=== PATIENT | male | born 1970 | race Caucasian/White ===

== ENCOUNTER 2017-02-21 12:57 | Inpatient (IN) | payer MEDICAID ==
[2017-02-21] VITALS (14 sets, daily range): BP systolic 95–145; BP diastolic 67–90
[~2017-02-21] VITALS: Ht 177.8 cm; Wt 91.5 kg
--- NOTE | ~2017-02-21 | OP ---
PATIENT NAME: NAMITA JARAMILLO MEDICAL RECORD: [id number] :72 LOCATION:D.[facility] D.CV02 ADMISSION DATE:02/21/17 SURGEON: TIBURCIO VAZQUEZ MD DATE OF OPERATION: 02/23/2017 PROCEDURES: 1. PTCA stent LAD. 2. Left heart catheterization. 3. Selective coronary angiography. 4. Left ventriculogram. 5. Intravascular ultrasound. INDICATION: Angina and coronary artery disease. PROCEDURE IN DETAIL: After informed consent was obtained and after a detailed explanation of risks, benefits as well as alternative therapies, the patient elected to proceed with angiogram and angioplasty. The right radial area was prepped and draped in normal sterile fashion. The right radial artery was cannulated via modified Seldinger technique with placement of 6-Korean sheath. All catheters were exchanged through this sheath. FINDINGS: The left ventriculogram was performed in standard 30-degree RAMIREZ view, reveals good cardiac wall motion throughout all segments. Overall ejection fraction estimated at 60%. SELECTIVE CORONARY ANGIOGRAPHY: 1. Left main showed no significant angiographic disease. 2. Left anterior descending has a previously placed stent that is widely patent, after this, however, there is 75% stenosis. 3. The left circumflex has moderate irregularities, but no flow-limiting stenosis. 4. Right coronary has a lesion in the mid vessel, but this is no greater than 60% confirmed by intravascular ultrasound. PTCA STENT OF THE LAD: The stent used is a 3.5 x 15-mm Integrity. Result was 0% residual stenosis. OVERALL IMPRESSION: Successful percutaneous transluminal coronary angioplasty stent of the left anterior descending going from 75% initial stenosis to 0% residual stenosis. TRANSINT:[id number] Voice Confirmation ID: [id number] DOCUMENT ID: [id number] TIBURCIO VAZQUEZ MD CC: [id number] DICTATION DATE: 02/23/17 1004 LAP MAKER: 02/23/17 1034 ADM IN [place] [address] [place] [address]
--- NOTE | ~2017-02-21 | HEMODYNAMI ---
PATIENT:NAMITA JARAMILLO MEDICAL RECORD: [id number] : 72 [facility]CV[facility] ADMISSION DATE: 02/21/17 Generatedon:02/23/201710:04 Patient name: NAMITA JARAMILLO Patient #: [id number] SSN: : Date of study: 02/23/2017 Page: Of Hemodynamic Procedure Report Patient Data Patient Demographics Procedure consent was obtained First Name: NAMITA Gender: Male Last Name: ELLA : 1970 Patient #: [id number] Age: 46 year(s) Race: Unknown Additional ID: [id number] Contact details [address]: [address] [place] [address] State: [place] City: [place] Zip code: [address] Admission Admission Data Admission Date: 02/21/2017 Admission Time: 15:26 Room #: D.CV02 Lab Results Lab Result Date: 02/22/2017 Lab Result Time: 0:00 Biochemistry Name Units Result Min Max Creatinine mg/dl 1 --(--*-)-- 0.6 1.3 CBC Name Units Result Min Max Hemoglobin g/dl 12.2 *-(----)-- 13.5 17.5 Procedure Procedure Types Cath Procedure Diagnostic Procedure [facility] w/Coronaries FFR/IVUS Intra-Coronary IVUS Initial PCI Procedure Coronary Stent Initial Miscellaneous Procedures Moderate Sedation up to 30 minutes Procedure Description Procedure Date Procedure Date: 02/23/2017 Procedure Start Time: 9:43 Procedure End Time: 10:04 Procedure Staff Name Function Chas Perry MD Performing Physician Kimmie Davis RT Scrub Fantasma Linn RN Nurse Isela Bruce RT Monitor Procedure Data Cath Procedure Fluoroscopy Diagnostic fluoroscopy Total fluoroscopy Time: 4 time: 4 min min Diagnostic fluoroscopy Total fluoroscopy dose: 665 dose: 665 mGy mGy Contrast Material Contrast Material Type Amount (ml) Isovue 300 101 Entry Location Entry Primary Successful Side Size Upsize Upsize Entry Closure Rey ccessful Closure Location (Fr) 1 (Fr) 2 (Fr) Remarks Device Remarks Radial Right 6 Fr Mechanical artery Short Compression Estimated blood loss: 10 ml Diagnostic catheters Device Type Used For End Catheter Placement Diagnostic Terumo 5Fr LV Angiography Morganza 110cm catheter Diagnostic Terumo 5Fr Left Coronary Morganza 110cm catheter Angiography Diagnostic Terumo 5Fr Right Coronary Morganza 110cm catheter Angiography Procedure Complications No complications Procedure Medications Medication Administration Route Dosage Oxygen NC 2 l/min Lidocaine 2% added to field 20 Heparin Flush Bag added to field 2 bags (1000units/500ml NS) 0.9% NaCl I.V. 100 ml/hr Versed I.V. 1 mg Fentanyl I.V. 50 mcg Heparin Bolus I.V. 4000 units Radial Cocktail I.A. 1 syringe (Verapomil 2mg/Nitro 400mcg/Heparin 1500units) Versed I.V. 1 mg Fentanyl I.V. 50 mcg Hemodynamics Rest HGB: 12.2 (g/dl) Heart Rate: 84 (bpm) Snapshots Pre Cath Intra NCS Post Cath Vital Signs Time Heart Resp SPO2 etCO2 HG4asfa NIBP (mmHg) Rhythm Pain Sedatio n Rate (ipm) (%) (mmHg) (mmHg) Status Level (bpm) 9:27:04 81 19 97 0 0 141/105(129) NSR 7 (11) 10(A) , Very intense 9:31:18 80 18 100 0 0 145/103(120) NSR 7 (11) 10(A) , Very intense 9:35:34 80 25 100 0 0 145/104(123) NSR 7 (11) 10(A) , Very intense 9:39:50 80 19 96 0 0 143/92(117) NSR 7 (11) 10(A) , Very intense 9:44:04 80 17 96 0 0 133/99(122) NSR 7 (11) 10(A) , Very intense 9:48:20 80 15 97 0 0 122/86(109) NSR 0 (11) 9(A) , No pain 9:52:24 79 16 95 0 0 118/86(108) NSR 0 (11) 9(A) , No pain 9:56:30 80 17 95 0 0 115/86(105) NSR 0 (11) 9(A) , No pain 10:00:36 80 17 96 0 0 129/82(104) NSR 0 (11) 10(A) , No pain Medications Time Medication Route Dose Verified Delivered Reason Notes Effectiveness by by 9:34:20 Oxygen NC 2 l/min Chas Meek used for Orlando Linn RN procedure 9:34:32 Lidocaine 2% added 20ml Chas Doherty for local to vial Orlando Perry MD anesthetic field 9:34:38 Heparin Flush added 2 bags Chas Doherty used for Bag to Orlando Perry MD procedure (1000units/500ml field NS) 9:34:47 0.9% NaCl I.V. 100 Chas Meek Per physician ml/hr Orlando Linn RN 9:42:04 Versed I.V. 1 mg Chas Meek for sedation Orlando Linn RN 9:42:11 Fentanyl I.V. 50 mcg Chas Meek for sedation Orlando Linn RN 9:46:00 Radial Cocktail I.A. 1 Chas Doherty for (Verapomil syringe Orlando Perry MD vasodilation 2mg/Nitro 400mcg/Heparin 1500units) 9:50:53 Heparin Bolus I.V. 4000 Chas Meek for verif ied units Orlando Linn RN anticoagulation with dr perry 9:52:39 Versed I.V. 1 mg Chas Meek for sedation Orlando Linn RN 9:52:42 Fentanyl I.V. 50 mcg Chas Meek for sedation Orlando Linn RN Procedure Log Time Note 9:01:22 Informed consent obtained and on chart 9:01:31 Diagnostic Cath Status : Elective 9:01:59 Fantasma Linn RN sent for patient. Start room use. 9:02:00 Time tracking: Regular hours 9:02:05 Plan of Care:Hemodynamics will remain stable., Cardiac rhythm will remain stable., Comfort level will be maintained., Respiratory function will remain adequate., Patient/ family verbilizes understanding of procedure., Procedure tolerated without complication., Recovers from procedure without complications.. 9:20:33 Patient received from CVICU to CCL 1 Alert and oriented. Tansferred to table in Supine position. 9:20:35 Warm blankets applied, and bonita hugger turned on for patient comfort. 9:20:35 Correct patient and procedure confirmed by team. 9:20:36 ECG and BP/O2 sat monitors applied to patient. 9:20:50 Vital chart was started 9:20:52 Baseline sample Acquired. 9:20:56 Rhythm: sinus rhythm 9:20:58 Full Disclosure recording started 9:21:03 H&P Date Dictated: 02/23/2017 New H&P dictated by physician.. 9:21:05 Pre-procedure instructions explained to patient. 9:21:05 Pre-op teaching completed and patient verbalized understanding. 9:21:07 Family in waiting room. 9:21:09 Patient NPO since Midnight. 9:21:15 Is the patient allergic to Iodine/contrast media? No. 9:21:16 Was the patient premedicated? No 9:21:19 Is patient on blood thinner?Yes 9:21:23 ACC The patient was administered the following blood thiners within the last 24 hours: ACCPlavix 9:31:38 Patient diabetic? No. 9:32:47 Previous problem with sedation/anesthesia? No ? 9:32:48 Snore? Yes 9:32:50 Sleep apnea? No 9:32:51 Deviated septum? No 9:32:51 Opens mouth fully? Yes 9:32:52 Sticks out tongue? Yes 9:32:54 Airway obstruction? No ? 9:32:56 Dentures? No ? 9:34:20 Oxygen 2 l/min NC was administered by Fantasma Linn RN; used for procedure; 9:34:32 Lidocaine 2% 20ml vial added to field was administered by Chas Perry MD; for local anesthetic; 9:34:38 Heparin Flush Bag (1000units/500ml NS) 2 bags added to field was administered by Chas Perry MD; used for procedure; 9:34:47 0.9% NaCl 100 ml/hr I.V. was administered by Fantasma Linn RN; Per physician; 9:35:06 Pre procedure: right dorsailis pedis pulse 2+ Normal; easily identifiable; not easily obliterated 9:35:09 Modified Devang's test Ulnar < 7 seconds 9:35:11 Patient pain scale 7/10 Chest. 9:35:37 IV left hand D/C'd due to infiltration. 9:36:05 IV started by Fantasma Linn RN inright forearm with a 18 gauge IV catheter with 0.9% NaCl at KVO. 9:36:15 18G IV catheter opened to sterile field. 9:36:22 Lab results completed and on chart. 9:36:25 Right Radial & Right Groin area was prepped with chlora-prep and draped in sterile fashion 9:36:25 Alarms reviewed by R. N. 9:36:26 Sharps counted by scrub and verified by R.N. 9:36:30 Use device set Radial Dx 9:36:31 Acist Syringe opened to sterile field. 9:36:31 Medline Cath Pack opened to sterile field. 9:36:32 Bag Decanter opened to sterile field. 9:36:32 Terumo 6Fr Slender Glidesheath opened to sterile field. 9:36:32 St Brian 260cm J .035 wire opened to sterile field. 9:36:33 Acist Hand Control opened to sterile field. 9:36:33 Acist Manifold opened to sterile field. 9:36:33 Tegaderm 4 x 4 opened to sterile field. 9:36:34 MBrace Wrist Support opened to sterile field. 9:38:19 Lab Result : Hemoglobin 12.2 g/dl 9:38:19 Lab Result : Creatinine 1 mg/dl 9:41:50 Final Timeout: patient, procedure, and site verified with staff and physician. All members of the team are in agreement. 9:41:54 Right Radial site verified by team. 9:41:57 Physical assessment completed. ASA score P 2 - A patient with mild systemic disease as per Chas Perry MD. 9:41:59 Sedation plan: IV Moderate Sedation Versed, Fentanyl 9:42:04 Versed 1 mg I.V. was administered by Fantasma Linn RN; for sedation; 9:42:11 Fentanyl 50 mcg I.V. was administered by Fantasma Linn RN; for sedation; 9:43:25 Zero performed for pressure channel P1 9:43:29 Procedure started. 9:43:33 Local anesthetic to right radial artery with Lidocaine 2% by Chas Perry MD.INITIAL ACCESS ONLY 9:45:29 A 6 Fr Short sheath was inserted into the Right Radial artery 9:45:38 Zero performed for pressure channel P1 9:46:00 Radial Cocktail (Verapomil 2mg/Nitro 400mcg/Heparin 1500units) 1 syringe I.A. was administered by Chas Perry MD; for vasodilation; 9:46:31 A Diagnostic Terumo 5Fr Morganza 110cm catheter was advanced over the wire and used for LV Angiography. 9:47:06 LV gram done using RAMIREZ 9:47:11 Injector settings: Ml/sec: 5, Volume: 15, 9:47:20 A Diagnostic Terumo 5Fr Morganza 110cm catheter was advanced over the wire and used for Left Coronary Angiography. 9:48:16 A Diagnostic Terumo 5Fr Morganza 110cm catheter was advanced over the wire and used for Right Coronary Angiography. 9:48:44 Catheter removed. 9:49:04 Medtronic Launcher 6Fr AR 2.0 guide catheter opened to sterile field. 9:49:04 Castellanos Whisper J 300cm 0.014 guide wire opened to sterile field. 9:49:05 10sec BasixCompak Inflation Kit opened to sterile field. 9:49:12 6 Fr AR 2.0 guide catheter was inserted over the wire 9:50:53 Heparin Bolus 4000 units I.V. was administered by Fantasma Linn RN; for anticoagulation; verified with dr perry 9:50:55 Whisper wire advanced. 9:51:08 [place] IVUS Catheter opened to sterile field. 9:51:51 IVUS catheter advanced over wire. 9:51:54 IVUS pass to RCA lesion performed. 9:52:39 Versed 1 mg I.V. was administered by Fantasma Linn RN; for sedation; 9:52:42 Fentanyl 50 mcg I.V. was administered by Fantasma Linn RN; for sedation; 9:55:14 IVUS catheter removed over wire. 9:55:37 Wire removed. 9:55:37 Guide catheter removed. 9:55:44 Cordis 6FR XBLAD 3.5 guide catheter opened to sterile field. 9:56:08 6 Fr XBLAD 3.5 guide catheter was inserted over the wire 9:57:27 Whisper wire advanced. 9:58:51 Inflation Number: 1 A Medtronic Integrity 3.5 X 15 stent was prepped and advanced across the Prox LAD. The stent was deployed at 11 ROLF for 0:08 (min:sec). 9:59:10 Stent catheter was removed intact over wire. 9:59:11 Wire removed. 9:59:12 Guide catheter removed. 9:59:53 Sheath removed intact; hemostasis achieved with Mechanical Compression to the Right Radial artery. 10:00:02 Procedure ended.(Physican Out) 10:00:14 Fluoroscopy time 04.00 minutes. 10:00:17 Fluoroscopy dose: 665 mGy 10:00:17 Flurop Dose total: 665 10:00:21 Contrast amount:Isovue 300 101ml. 10:00:30 Terumo TR Band Standard opened to sterile field. 10:00:34 Sharps counted by scrub and verified by R.N. 10:00:37 TR band inflated with 12cc of air. 10:00:38 Insertion/operative site no bleeding no hematoma. 10:00:43 Post right radial artery:stable, clean and dry 10:00:45 Post Procedure Pulses reassessed and unchanged 10:00:47 Post-procedure physical assessment completed. ASA score P 2 - A patient with mild systemic disease as per Chas Perry MD. 10:00:49 Post procedure rhythm: unchanged. 10:00:52 Estimated blood loss: 10 ml 10:00:53 Post procedure instruction explained to patient.Patient verbalizes understanding. 10:00:54 Patient needs reinforcement of post procedure teaching. 10:02:26 Procedure type changed to Cath procedure, Diagnostic procedure, LHC, LHC w/Coronaries, FFR/IVUS, Intra-Coronary IVUS Initial, PCI procedure, Coronary Stent Initial, Miscellaneous Procedures, Moderate Sedation up to 30 minutes 10:03:03 Procedure Complication : No complications 10:03:05 See physician's report for complete and final results. 10:04:10 IV Extension Set opened to sterile field. 10:04:14 Procedure and supply charges have been captured, reviewed, submitted and are correct. 10:04:19 Vital chart was stopped 10:04:22 Report given to CVICU. 10:04:25 Patient transfered to CVICU with Bed. 10:04:31 Procedure ended. 10:04:31 Full Disclosure recording stopped 10:04:34 End room use (Document Last) Intervention Summary Intervention Notes Time ActionType Lesion and Equipment Action# Pressure Duration Attributes Used 9:58:51 Place stent Prox LAD Medtronic 1 11 00:08 Integrity 3.5 X 15 stent Device Usage Item Name Manufacture Quantity Catalog Hospital Part Current Minimal Lot# / Number Charge Number Stock Stock Serial# Code 18G IV B. Fine 1 [id number] [id number] 632426 5 catheter Acist Acist 1 76180 298329 178522 059424 20 Syringe Medical Systems Inc Medline Cardinal 1 [id number] 436684 35395 265308 5 Cath Pack Health Bag Microtek 1 2001S 269361 56422 074982 5 DecWoven Orthopedic Technologies Medical Inc. Terumo 6Fr Terumo 1 [id number] 184774 405598 012388 [address] Brian 1 655422 081984 391345 979746 30 260cm J .035 wire Acist Hand Acist 1 88884 815900 339710 644466 5 Control Medical Systems Inc Acist Acist 1 48416 563494 305177 334882 5 Manifold Medical Systems Inc Tegaderm 4 3M 1 1626W 264695 485217 063229 5 x 4 MBrace Advanced 1 140-0250-00 625130 79252 395410 5 Wrist Vascular Support Dynamics Diagnostic Terumo 1 40-5062 840595 939560 294027 5 Terumo 5Fr Morganza 110cm catheter Medtronic Medtronic 1 [id number] 089119 01533 584096 1 Launcher 6Fr AR 2.0 guide catheter Castellanos Castellanos 1 [id number] 566612 642326 749761 5 Whisper J Vascular 300cm 0.014 guide wire Merit Merit 1 QB5999 230435 399081 176004 15 Duo [facility] Medical Inflation Kit [place] 1 09122W 468079 661434 245871 8 [place] IVUS Catheter Cordis 6FR Cardinal 1 [id number] 860528 316496 946377 10 XBLAD 3.5 Health guide catheter Medtronic Medtronic 1 [id number] 519884 634609 8 [id number] Integrity 3.5 X 15 stent Terumo TR Terumo 1 [id number] 959793 892390 297166 40 Band Standard IV Hospira 1 29196-70 8322860 67932 606433 5 Extension Set Signature Audit Aurora Stage Time Signature Unsigned Intra-Procedure 02/23/2017 Isela 10:04:46 AM Counts RT(R) Signatures Monitor : Isela Signature : Counts RT Date : Time : [address] [place] [address]
--- NOTE | ~2017-02-21 | DS ---
PATIENT:NAMITA JARAMILLO :72 MEDICAL RECORD: [id number] DISCHARGE SUMMARY ADMISSION DATE: 02/21/17 DISCHARGE DATE: DISCHARGE DIAGNOSES: 1. Angina. 2. Coronary artery disease. 3. Percutaneous transluminal coronary angioplasty stent of the left anterior descending this admission. 4. Hypertension. 5. Hyperlipidemia. HOSPITAL COURSE: Mr. Jaramillo presents with unstable angina, found to have single vessel disease to the LAD, underwent successful PTCA stent of the LAD, had an uneventful postop course. He was discharged home with the additional Plavix to his medical regimen. He will follow up with [facility] in 1 month. TRANSINT:[id number] Voice Confirmation ID: [id number] DOCUMENT ID: [id number] TIBURCIO VAZQUEZ MD CC: [id number] DICTATION DATE: 02/23/17 1002 BUFFING LINE SET UP WORKER: 02/23/17 1028 ADM IN [facility] [address] [place] [address]
--- NOTE | ~2017-02-21 | HP ---
PATIENT: NAMITA JARAMILLO MEDICAL RECORD: [id number] ACCOUNT: [id number] LOCATION:[facility].CV02 : 72 ADMISSION DATE: 02/21/17 HISTORY AND PHYSICAL EXAMINATION DIAGNOSES: 1. Unstable angina. 2. Coronary artery disease. 3. Previous percutaneous transluminal coronary angioplasty stent. HISTORY OF PRESENT ILLNESS: Mr. Jaramillo presents with 1 day of chest pain, continues to have chest pain. He is on a nitro drip that has improved the chest pain, but he continues to have. He has no EKG changes. Troponin is normal. This is just like that of his previous angina. Last cardiac intervention in 2009. PHYSICAL EXAMINATION: GENERAL APPEARANCE: Well-nourished, well-developed, appears stated age. Level of distress, comfortable. PSYCHIATRIC: Mental status, alert, normal affect. Orientation, oriented to time, place and person. EYES: Lids and conjunctiva, noninjected. No discharge, no pallor. ENT: Lips, teeth, gums, normal dentition. Oropharynx, no cyanosis, no pallor. NECK: Carotid arteries, bilateral normal upstroke, no bruits, no thrills. JUGULAR VEINS: No jugular venous pressure or distention. CERVICAL LYMPH NODES: Nontender, nonenlarged. THYROID: Not enlarged. Nontender. No nodules. LUNGS: Respiratory effort, unlabored. CHEST: Normal curvature. No thoracic deformity. No chest wall tenderness. Percussion, resonant. Auscultation, clear. No wheezes, no rales, no rhonchi. CARDIOVASCULAR: Precordial exam, nondisplaced. No heaves or pericardial thrills. Rate and rhythm, regular. Heart sounds, normal S1, normal S2. No S3, no gallop, no rub. Systolic murmur, not heard. Diastolic murmur, not heard. EXTREMITIES: No cyanosis, no edema. Peripheral pulses, full and equal in all extremities, except as noted. No bruits appreciated. ABDOMEN: Soft, nondistended. Normal aorta. No bruit. Nontender. No masses. Liver, nontender, no hepatomegaly. Spleen, nontender, no splenomegaly. MUSCULOSKELETAL: No joint tenderness. No joint swelling. No erythema. NEUROLOGICAL: Normal gait, normal strength, normal tone. SKIN: Warm and dry. REVIEW OF SYSTEMS: The patient reports easy bruising but reports no swollen glands. The patient reports no fever, no night sweats, no significant weight gain, no significant weight loss. No significant exercise tolerance. The patient reports no dry eyes, no irritation, no vision change. Patient reports no difficulty hearing and no ear pain. Patient reports no frequent nose bleeds or nose and sinus problems. Patient reports on arm pain on exertion. No shortness of breath while lying down. No history of heart murmur. Patient reports no cough, no wheezing or coughing up blood. Patient reports no abdominal pain, no vomiting. Normal appetite. No diarrhea and not vomiting blood. No nausea and no constipation. Patient reports no incontinence. No difficulty urinating. No hematuria. No increased frequency. Patient reports no muscle aches. No weakness, no arthralgias, no back pain. No swelling of the extremities. Patient reports no abnormal mole, no jaundice, no rashes. Reports no loss of consciousness. No weakness and no numbness. No seizures, dizziness, HISTORY AND PHYSICAL [id number] ELLA,NAMITA or headaches. The patient reports no depression, no sleep disturbance, feeling safe in a relationship and no alcohol abuse. Patient reports on fatigue. Reports no runny nose or sinus pressure. No itching, no hives, and no frequent sneezing. OVERALL IMPRESSIONS: Chest pain compatible with angina in an unstable fashion. We will proceed with coronary angiography. Further care depends upon findings of the angiography. TRANSINT:[id number] Voice Confirmation ID: [id number] DOCUMENT ID: [id number] TIBURCIO VAZQUEZ MD CC: [id number] DICTATION DATE: 02/22/17 111 VISUAL EDUCATION TEACHER: 02/22/17 [address] [facility] [place] [id number] [place] [address]
[2017-02-21 13:46] LABS: BASOPHILS 1.3 % (0-2); HEMATOCRIT 39.1 % (42.0-54.0); HEMOGLOBIN 13.1 g/dL (13.5-17.5); IMMATURE GRANULOCYTES 0.1 % (0-5); MCH 31.5 pg (26.0-34.0); MCHC 33.5 g/dL (31.0-37.0); MEAN PLATELET VOLUME 10.4 fL (7.4-10.4); MONOCYTES 8.7 % (2-11); NEUTROPHILS 51.9 % (40-80); PLATELET COUNT 213 10x3/uL (130-400); RBC 4.16 10x6/uL (4.20-6.10); RDW 14.1 % (11.5-14.5); WBC 6.7 10x3/uL (4.8-10.8)
[2017-02-21 13:59] LABS: ALBUMIN 3.3 g/dL (3.4-5.0); ALKALINE PHOSPHATASE 128 U/L (46-116); ALT (SGPT) 122 U/L (10-68); CALC OSMOLALITY 296 mosm/kg (275-300); CALCIUM 8.4 mg/dL (8.5-10.1); CARBON DIOXIDE 31.3 mmol/L (21.0-32.0); CHLORIDE - SERUM 109 mmol/L (98-107); CREATININE - SERUM 1.1 mg/dL (0.6-1.3); GLUCOSE 87 mg/dL (74-106); POTASSIUM - SERUM 4.1 mmol/L (3.5-5.1); PROTEIN - SERUM 6.5 g/dL (6.4-8.2); SODIUM 149 mmol/L (136-145); UREA NITROGEN 17 mg/dL (7-18); eGFR NON AFRICAN AMERICAN 77 mL/min (90-120)
[2017-02-21 14:09] LABS: CHOL - HDL RATIO 3.4 ratio (2.3-4.9); CHOLESTEROL, TOTAL 151 mg/dL (0-200); CKMB 0.3 U/L (0.0-3.6); CREATINE KINASE 287 UL (21-232); HDL CHOLESTEROL 44 mg/dL (32-96); LDL CHOLESTEROL 70 mg/dL (0-100); LDL-HDL RATIO 1.6 ratio (1.5-3.5); TRIGLYCERIDE 186 mg/dL (30-200)
[2017-02-21 14:11] LABS: TROPONIN-I < 0.017 ng/mL (0.000-0.060)
[2017-02-21] MEDS ORDERED: MOBIC7.5 MG PO (16:37)
[2017-02-21] MEDS ORDERED: KLONOPIN1 MG PO (16:39)
[2017-02-21] MEDS ORDERED: LAMICTAL25 MG PO (16:40)
[2017-02-21] MEDS ORDERED: CELEXA20 MG PO (16:41)
[2017-02-21] MEDS ORDERED: HYDROCODONE-APA1 TAB PO (16:42)
--- NOTE | 2017-02-21 18:14 | NUR ---
1615-RECIEVED FROM ER -PLACED TO MONITOR-NOTED SR -L WRIST-NTG AT 5MCG/-STATES CHEST DISCOMFORT DECREASED FROM PRIOR-NOT COMPLETELY GONE-09/29-STATES BELIEVES MIGHT BE PANCREATITIS-STATED EXPERIENCED RECENTLY-AND PAIN SYMPTOM APPEARS SIMILAR-NOTED R GROIN CATH SITE-VERBALLY STATES 10 DAYS AGO-SOFT HEMATOMA-STATES 1 STENT-STATED [place] LOCATION- 1645-SANDWICH TRAY 100% CONSUMED 1700-C/O 12/29 CHEST PAIN-STATED SAME- EARLIER-HAD REMOVED OXYGEN-AND PLACED IT BACK- HIMSELF-MORPHINE 4 MG IVP SLOW GIVEN-12 LEAD EKG REPEAT 171-STATES PAIN 09/29-NOTED 12 LEAD WITH IMPROVEMENT IN LEAD V3 AND 111-PT AGAIN STATES BELIEVES PANCREAS-STATES GALLBLADDER REMOVED IN ADULT ASSESSMENT DONE SHIFT-DUE TO COMPUTER/PROGRAM MALFUNCTION--PT STATED WILL CONTACT WHEN CELL PHONE RECHARGED-CELL PHONE SET UP FOR CHARGING-STATES DOES NOT KNOW HE IS HERE-
--- NOTE | 2017-02-21 19:00 | NUR ---
SHIFT ASSESSMENT COMPLETE, PATIENT RESTING IN BED WITH EYES CLOSED. STATES HE IS FEELING BETTER, NITRO AND MORPHINE HAVE HELPED WITH CHEST PAIN. VSS, NSR ON MONITOR. RR EVEN AND NONLABORED, LUNG SOUNDS CLEAR. PIV IN LEFT HAND, SEE FLOWSHEET FOR IV DRIPS. DRESSING C/D/I WITH NO REDNESS. PERIPHERAL PULSES +2. PATIENT GETS UP AND DOWN WITH STEADY GATE. DENIES PROBLEMS WITH URINATING. CL IN REACH, WILL MONITOR.
[2017-02-21 19:34] LABS: CKMB 0.3 U/L (0.0-3.6); CREATINE KINASE 249 UL (21-232)
[2017-02-21 19:42] LABS: TROPONIN-I < 0.017 ng/mL (0.000-0.060)
--- NOTE | 2017-02-21 20:00 | NUR ---
PATIENT STATES HE IS HUNGRY. [place].
--- NOTE | 2017-02-21 21:20 | NUR ---
PATIENT STATES HE HAS CHEST PAIN @ A 8/10 PRN MORPHINE GIVEN. VSS. NSR ON MONITOR. NITRO INFUSING @ 5MCG/MIN.
--- NOTE | 2017-02-21 23:00 | NUR ---
REASSESSMENT COMPLETE, NO ACUTE CHANGES. PATIENT RESTING WELL. VSS.
[2017-02-22] VITALS (61 sets, daily range): BP systolic 90–137; BP diastolic 52–99
--- NOTE | 2017-02-22 | NUR ---
ALL FOOD AND DRINKS REMOVED FROM ROOM PER ORDER OF NPO AFTER MIDNIGHT.
[2017-02-22 01:17] LABS: CKMB 0.2 U/L (0.0-3.6); CREATINE KINASE 193 UL (21-232)
[2017-02-22 01:19] LABS: TROPONIN-I < 0.017 ng/mL (0.000-0.060)
--- NOTE | 2017-02-22 01:40 | NUR ---
PATIENT STATES HE IS HAVING CHEST PAIN AGAIN WITH A PAIN LEVEL OF 8, PRN MORPHINE GIVEN, VSS, NSR ON MONITOR.
--- NOTE | 2017-02-22 03:00 | NUR ---
REASSESSMENT COMPLETE, NO ACUTE CHANGES. PATIENT RESTING WELL.
--- NOTE | 2017-02-22 05:15 | NUR ---
PATIENT RESTING WITH EYES CLOSED. VSS.
[2017-02-22 06:54] LABS: BASOPHILS 1.3 % (0-2); EOSINOPHILS 4.3 % (0-7); HEMATOCRIT 37.1 % (42.0-54.0); HEMOGLOBIN 12.2 g/dL (13.5-17.5); IMMATURE GRANULOCYTES 0.2 % (0-5); LYMPHOCYTES 39.9 % (15-50); MCH 30.9 pg (26.0-34.0); MCHC 32.9 g/dL (31.0-37.0); MCV 93.9 fL (80.0-100.0); MEAN PLATELET VOLUME 10.6 fL (7.4-10.4); MONOCYTES 7.8 % (2-11); NEUTROPHILS 46.5 % (40-80); PLATELET COUNT 185 10x3/uL (130-400); RBC 3.95 10x6/uL (4.20-6.10); RDW 14.1 % (11.5-14.5); WBC 5.5 10x3/uL (4.8-10.8)
[2017-02-22 06:58] LABS: INR 0.97 (0.85-1.17); PROTIME 12.7 SECONDS (11.6-15.0)
[2017-02-22 07:07] LABS: ALKALINE PHOSPHATASE 133 U/L (46-116); ALT (SGPT) 228 U/L (10-68); BILIRUBIN - TOTAL 0.57 mg/dL (0.2-1.3); CALC OSMOLALITY 287 mosm/kg (275-300); CALCIUM 7.9 mg/dL (8.5-10.1); CARBON DIOXIDE 31.5 mmol/L (21.0-32.0); CHLORIDE - SERUM 108 mmol/L (98-107); GLUCOSE 88 mg/dL (74-106); PROTEIN - SERUM 5.9 g/dL (6.4-8.2); SODIUM 144 mmol/L (136-145); UREA NITROGEN 19 mg/dL (7-18); eGFR NON AFRICAN AMERICAN 86 mL/min (90-120)
--- NOTE | 2017-02-22 13:21 | NUR ---
FOUND PT WITH PERSONAL BELONGINGS OUT-AND ATTEMPTING TO TAKE-3 TABLETS OF CLONAZEPAM 1MG OWN PRESCRIPTION BOTTLE-AND TABLET 25MG LAMOTRIGINE 25MG PO OWN-PREVENTED PT AND HAD PLACE BACK IN PRESCRIPTION BOTTLE- REMOVED FROM PT-SENT TO PHARMACY -NURSING BULLDOZER OPERATOR NOTIFIED AND DR VAZQUEZ MADE AWARE-PT EXPRESSED HOSTILITY ABOUT BEING PREVENTED FROM TAKING OWN MEDS-STATED HIS NUER
--- NOTE | 2017-02-22 14:24 | NUR ---
NOTIFIED PHARMACY FOR PERSONAL MED GAMER--NOTED PT ASLEEP WITH SNORING TYPE RESPIRATIONS-
--- NOTE | 2017-02-22 14:38 | NUR ---
1100-DR VAZQUEZ AT BEDSIDE AND SPOKE WITH PT REGARDING STATUS -PT STATED STILL HAS CHEST PAIN-BUT COMES AND GOES-
--- NOTE | 2017-02-22 19:00 | NUR ---
REPORT RECEIVED AND ASSESSMENT COMPLETED. SEE FLOWSHEET FOR FULL DETAILS. PT SEEMS LETHARGIC AT THIS TIME. FULLY ORIENTED. SPEECH CLEARN. NSR ON MONITOR. NITRO DRIP RUNNING AT 5, NS @ 10. WILL MONITOR THROUGHOUT SHIFT
--- NOTE | 2017-02-22 21:00 | NUR ---
2100 MEDS GIVEN. PT C/O PAIN AT THIS TIME. PRN MEDICATION GIVEN WELL PRN FOR N/V PER PT REQUEST BECAUSE HE STATES THE PAIN PRN MAKES HIM NAUSEATED. WILL MONITOR CLOSELY FOR COMPLICATIONS. VSS. WILL MONITOR
--- NOTE | 2017-02-22 23:00 | NUR ---
REASSESSMENT COMPLETED SEE FLOWSHEET FOR FULL DETAILS. VSS. WILL CONTINUE TO MONITOR.
[2017-02-23] VITALS (17 sets, daily range): BP systolic 102–137; BP diastolic 62–94; Ht 177.8 cm; Wt 91.5 kg
--- NOTE | 2017-02-23 01:00 | NUR ---
WENT INTO PATIENT ROOM. HE HAD DISCONNECTED IV TUBING. REPLACED ALL TUBING AT THIS TIME. AND INSTRUCTED HIM TO LEAVE IN PLACE, WHILE EXPLAINING IMPORTANCE OF HIS MEDICATIONS. NO OTHER CHANGES AT THIS TIME. VSS. WILL MONITOR
--- NOTE | 2017-02-23 03:00 | NUR ---
REASSESSMENT COMPLETED. NO CHANGES IN STATUS AT THIS TIME. VSS. WILL CONTINUE TO MONITOR
--- NOTE | 2017-02-23 07:42 | NUR ---
REPORT RECEIVED. SHIFT ASSESSMENT COMPLETE. PT SLEEPING. WAKES WHEN SPOKEN TO. ORIENTED.
--- NOTE | 2017-02-23 09:15 | NUR ---
PT PREOP MEDICATIONS PROVIDED WELL MORNING MEDICATIONS WITH THE EXCEPTION OF KLONIPIN DUE TO GIVING PREOP MEDICATIONS. PT NOW OFF UNIT TO LABOR RELATIONS TEACHER.
--- NOTE | 2017-02-23 10:07 | NUR ---
REPORT RECEIVED FROM BRAND MGR NURSE CANDIDO. PT HAD ONE STENT PLACED TO LAD. RIGHT RADIAL ENTRY. TR BAND IN PLACE. GIVEN 75MG PLAVIX. TURNED OFF NITRO GTT. NEW IV SITED TO RIGHT AC. NS RUNNING.
--- NOTE | 2017-02-23 10:17 | NUR ---
PT RETURNED TO ROOM FROM VAT HOUSE SUPERVISOR
--- NOTE | 2017-02-23 14:13 | NUR ---
PT HAS REQUESTED PAIN MEDICATION. WHEN MEDICATION PULLED AND TAKEN IN TO PATIENT ROOM, PATIENT WAS SLEEPING. NO DISTRESS NOTED. DID NOT WAKE PATIENT.
[2017-02-23] MEDS ORDERED: PLAVIX75 MG PO (15:40)
[2017-02-23] MEDS ORDERED: BAYER CHEWABLE81 MG PO (15:40)
--- NOTE | 2017-02-23 16:04 | NUR ---
DISCUSSED DISCHARGE INSTRUCTIONS WITH PT. HE VOICED UNDERSTANDING. GAVE PRESCRIPTION FOR PLAVIX. HE VOICES UNDERSTANDING FOR FOLLOW UP WITH DR. VAZQUEZ.
--- NOTE | 2017-02-23 16:45 | NUR ---
IV REMOVED, TIP INTACT.
--- NOTE | 2017-02-23 17:20 | NUR ---
FOUND PATIENT PRESCRIPTION FOR PLAVIX ON FLOOR AFTER PATIENT DISCHARGED. CALLED PHONE NUMBER LISTED FOR HIM. DID NOT GET AN ANSWER. LEFT VOICE MESSAGE FOR HIM TO CALL BACK AND GIVE US A PHARMACY AND WE CAN CALL IT IN FOR HIM.
== END 2017-02-23 17:29 | disposition home or self-care (01) | DRG 249 ==
LOC: D.ER 12:57 → D.CVICU 15:26
PROVIDERS: Emergency Medicine; ADMIT Internal Medicine Interventional Cardiology
PROC: B2111ZZ Fluoroscopy of Multiple Coronary Arteries using Low Osmolar Contrast (ICD-10-PCS; 2017-02-23)
PROC: B2151ZZ Fluoroscopy of Left Heart using Low Osmolar Contrast (ICD-10-PCS; 2017-02-23)
PROC: B240ZZ3 Ultrasonography of Single Coronary Artery, Intravascular (ICD-10-PCS; 2017-02-23)
PROC: 02703DZ Dilation of Coronary Artery, One Artery with Intraluminal Device, Percutaneous Approach (ICD-10-PCS; principal; 2017-02-23 09:01)
PROC: 4A023N7 Measurement of Cardiac Sampling and Pressure, Left Heart, Percutaneous Approach (ICD-10-PCS; 2017-02-23 09:01)
DX: I25.110 Atherosclerotic heart disease of native coronary artery with unstable angina pectoris (principal); Z95.5 Presence of coronary angioplasty implant and graft; I10 Essential (primary) hypertension; E78.5 Hyperlipidemia, unspecified

== ENCOUNTER 2017-02-27 13:21 | Observation (INO) | payer MEDICAID ==
[~2017-02-27] VITALS: Ht 177.8 cm; Wt 92.3 kg
--- NOTE | ~2017-02-27 | HEMODYNAMI ---
PATIENT:NAMITA JARAMILLO MEDICAL RECORD: [id number] : 72 [facility] [id number] ADMISSION DATE: 02/27/17 Generatedon:02/28/201714:48 Patient name: NAMITA JARAMILLO Patient #: [id number] : 1970 Date of study: 02/28/2017 Page: Of Hemodynamic Procedure Report Patient Data Patient Demographics Procedure consent was obtained First Name: NAMITA Gender: Male Last Name: ELLA : 1970 Patient #: [id number] Age: 46 year(s) Race: SSN: [id number] Additional ID: [id number] Contact details [address]: [address] [place] [address] State: [place] City: [place] Zip code: [address] Admission Admission Data Admission Date: 02/27/2017 Admission Time: 16:20 Arrival Date: 02/27/2017 Arrival Time: 16:20 Admit Source: Other Insurance Payor: Medicaid Room #: D.[id number] Lab Results Lab Result Date: 02/28/2017 Lab Result Time: 0:00 Biochemistry Name Units Result Min Max BUN mg/dl 14 --(--*-)-- 7 18 Creatinine mg/dl 1.2 --(---*)-- 0.6 1.3 CBC Name Units Result Min Max Hemoglobin g/dl 14 --(*---)-- 13.5 17.5 Procedure Procedure Types Cath Procedure Diagnostic Procedure LHC LHC w/Coronaries Miscellaneous Procedures Procedure Description Procedure Date Procedure Date: 02/28/2017 Procedure Start Time: 14:25 Procedure End Time: 14:45 Procedure Staff Name Function Spencer Torres MD Performing Physician Isela Bruce RT Scrub Fantasma Linn RN Nurse Kimmie Davis RT Monitor Procedure Data Cath Procedure Fluoroscopy Diagnostic fluoroscopy Total fluoroscopy Time: 1.7 time: 1.7 min min Diagnostic fluoroscopy Total fluoroscopy dose: 331 dose: 331 mGy mGy Contrast Material Contrast Material Type Amount (ml) Isovue 300 40 Entry Location Entry Primary Successful Side Size Upsize Upsize Entry Closure Succes sful Closure Location (Fr) 1 (Fr) 2 (Fr) Remarks Device Remarks Femoral Right 5 Fr Exoseal artery Estimated blood loss: 5 ml Diagnostic catheters Device Type Used For End Catheter Placement Cordis 5Fr JL 4.0 Left Coronary Catheter (MP) Angiography Cordis 5Fr 3DRC Catheter Right Coronary (MP) Angiography Cordis 5Fr Pigtail LV Angiography Catheter (MP) Procedure Complications No complications Procedure Medications Medication Administration Route Dosage Oxygen NC 2 l/min Lidocaine 2% added to field 20 Heparin Flush Bag added to field 2 bags (1000units/500ml NS) 0.9% NaCl I.V. 100 ml/hr Versed I.V. 2 mg Fentanyl I.V. 50 mcg Fentanyl I.V. 50 mcg Hemodynamics Rest HGB: 14 (g/dl) Heart Rate: 82 (bpm) Pressure Samples Time Site Value (mmHg) Purpose Heart Use Rate(bpm) 14:37 LV 149/-7,28 Snapshot 70 14:38 LV 150/-5,27 Snapshot 90 Gradients Valve Time Site Site Mean SEP/DFP Peak To Heart Use 1 2 (mmHg) (sec/min) Peak Rate (mmHg) (bpm) Aortic 14:38 LV AO 80 Snapshots Pre Cath Intra NCS Post Cath Vital Signs Time Heart Resp SPO2 etCO2 [id number] NIBP (mmHg) Rhythm Pain Sedation Rate (ipm) (%) (mmHg) (mmHg) Status Level (bpm) 14:13:00 80 16 97 0 0 137/95(113) NSR 0 (11) 10(A) , No pain 14:17:14 80 15 97 0 0 135/96(112) NSR 0 (11) 10(A) , No pain 14:21:26 80 16 100 0 0 137/93(119) NSR 0 (11) 10(A) , No pain 14:25:38 80 19 100 0 0 136/94(111) NSR 0 (11) 10(A) , No pain 14:29:48 80 16 97 0 0 138/95(113) NSR 0 (11) 10(A) , No pain 14:34:04 80 15 97 0 0 135/96(128) NSR 0 (11) 10(A) , No pain 14:38:14 80 16 97 0 0 135/99(119) NSR 0 (11) 10(A) , No pain 14:42:28 80 16 97 0 0 133/89(111) NSR 0 (11) 10(A) , No pain Medications Time Medication Route Dose Verified Delivered Reason Notes Effe ctiveness by by 14:11:48 Oxygen NC 2 Spencer Buffie used for l/min Melissa Linn RN procedure MD 14:11:56 Lidocaine 2% added 20ml Spencer Spencer for local to vial Melissa Torres MD anesthetic field 14:12:03 Heparin Flush added 2 Spencer Spencer used for Bag to bags Melissa Torres MD procedure (1000units/500ml field NS) 14:12:12 0.9% NaCl I.V. 100 Spencer Buffie Per ml/hr Melissa Linn RN physician 14:23:54 Versed I.V. 2 mg Spencer Buffie for Melissa Linn RN sedation 14:23:59 Fentanyl I.V. 50 Spencer Buffie for mcg Melissa Linn RN sedation 14:30:15 Fentanyl I.V. 50 Spencer Buffie for mcg Melissa Linn RN sedation Procedure Log Time Note 13:50:45 Isela Counts RT(R) sent for patient. Start room use. 13:50:45 Time tracking: Regular hours 13:50:49 Plan of Care:Hemodynamics will remain stable., Cardiac rhythm will remain stable., Comfort level will be maintained., Respiratory function will remain adequate., Patient/ family verbilizes understanding of procedure., Procedure tolerated without complication., Recovers from procedure without complications.. 14:03:59 Informed consent obtained and on chart 14:04:12 Admit Source: Other 14:04:21 Arrival Date: 02/27/2017 4:20:00 PM 14:04:29 Insurance Payor : Medicaid 14:04:56 Lab Result : Hemoglobin 14 g/dl 14:04:56 Lab Result : Creatinine 1.2 mg/dl 14:04:56 Lab Result : BUN 14 mg/dl 14:06:08 Patient received from Med II to CCL 1 Alert and oriented. Tansferred to table in Supine position. 14:06:10 Warm blankets applied, and bonita hugger turned on for patient comfort. 14:06:10 Correct patient and procedure confirmed by team. 14:06:11 ECG and BP/O2 sat monitors applied to patient. 14:11:48 Oxygen 2 l/min NC was administered by Fantasma Linn RN; used for procedure; 14:11:55 Vital chart was started 14:11:56 Lidocaine 2% 20ml vial added to field was administered by Spencer Torres MD; for local anesthetic; 14:11:57 Baseline sample Acquired. 14:12:02 Rhythm: sinus rhythm 14:12:03 Heparin Flush Bag (1000units/500ml NS) 2 bags added to field was administered by Spencer Torres MD; used for procedure; 14:12:05 Full Disclosure recording started 14:12:10 H&P Date Dictated: 02/28/2017 New H&P dictated by physician.. 14:12:11 Pre-procedure instructions explained to patient. 14:12:12 0.9% NaCl 100 ml/hr I.V. was administered by Fantasma Linn RN; Per physician; 14:12:12 Pre-op teaching completed and patient verbalized understanding. 14:12:13 Family unavailable. 14:12:15 Patient NPO since Midnight. 14:13:53 Is the patient allergic to Iodine/contrast media? No. 14:13:54 Was the patient premedicated? No 14:13:55 Is patient on blood thinner?Yes 14:13:59 ACC The patient was administered the following blood thiners within the last 24 hours: ACCPlavix 14:14:56 Patient diabetic? No. 14:15:00 Previous problem with sedation/anesthesia? No ? 14:15:02 Snore? Yes 14:15:03 Sleep apnea? No 14:15:04 Deviated septum? No 14:15:05 Opens mouth fully? Yes 14:15:06 Sticks out tongue? Yes 14:15:08 Airway obstruction? No ? 14:15:11 Dentures? No ? 14:15:14 Pre procedure: right dorsailis pedis pulse 1+ Palpable, but thready & weak; easily obliterated 14:15:16 Pre procedure: left dorsailis pedis pulse 1+ Palpable, but thready & weak; easily obliterated 14:15:18 Patient pain scale 0/10 ?. 14:15:40 IV patent on arrival in left hand with 0.9% NaCl at [facility]. 14:15:43 Lab results completed and on chart. 14:15:47 Right groin area was prepped with chlora-prep and draped in sterile fashion 14:15:48 Alarms reviewed by R. N. 14:15:48 Sharps counted by scrub and verified by R.N. 14:16:48 Physician arrived 14:16:49 --------ALL STOP TIME OUT------ 14:16:50 Final Timeout: patient, procedure, and site verified with staff and physician. All members of the team are in agreement. 14:16:53 Right groin site verified by team. 14:16:55 Physical assessment completed. ASA score P 2 - A patient with mild systemic disease as per Spencer Torres MD. 14:16:59 Sedation plan: IV Moderate Sedation Versed, Fentanyl 14:18:01 Use device set Femoral Dx 14:18:02 Acist Syringe opened to sterile field. 14:18:02 Bag Decanter opened to sterile field. 14:18:02 Medline Cath Pack opened to sterile field. 14:18:03 Terumo 5Fr [place] Sheath opened to sterile field. 14:18:03 St Rbian 260cm J .035 wire opened to sterile field. 14:18:04 Acist Hand Control opened to sterile field. 14:18:05 Acist Manifold opened to sterile field. 14:18:05 Diagnostic Infinity 5Fr Multipack catheter opened to sterile field. 14:18:06 Tegaderm 4 x 4 opened to sterile field. 14:23:54 Versed 2 mg I.V. was administered by Fantasma Linn RN; for sedation; 14:23:59 Fentanyl 50 mcg I.V. was administered by Fantasma Linn RN; for sedation; 14:25:18 Procedure started. 14:25:21 Zero performed for pressure channel P1 14:25:30 Local anesthetic to right femoral artery with Lidocaine 2% by Spencer Torres MD.INITIAL ACCESS ONLY 14:25:42 A 5 Fr sheath was inserted into the Right Femoral artery 14:25:54 Cook 4Fr Micropuncture Set ([id number]) opened to sterile field. 14:30:15 Fentanyl 50 mcg I.V. was administered by Fantasma Linn RN; for sedation; 14:30:34 A Cordis 5Fr JL 4.0 Catheter (MP) was advanced over the wire and used for Left Coronary Angiography. 14:34:02 Catheter removed. 14:34:08 A Cordis 5Fr 3DRC Catheter (MP) was advanced over the wire and used for Right Coronary Angiography. 14:35:45 RCA angiography performed. 14:35:50 Catheter removed. 14:35:56 A Cordis 5Fr Pigtail Catheter (MP) was advanced over the wire and used for LV Angiography. 14:37:40 Zero performed for pressure channel P1 14:38:19 LV hemodynamics recorded. 14:38:20 LV gram done using RAMIREZ 14:38:25 Injector settings: Ml/sec: 8, Volume: 12, 14:39:09 EF : 55 % 14:39:13 Catheter removed. 14:39:21 Cordis 5Fr Exoseal opened to sterile field. 14:39:38 Sheath removed intact; hemostasis achieved with Exoseal to the Right Femoral artery. 14:39:47 Procedure ended.(Physican Out) 14:40:35 Fluoroscopy time 01.70 minutes. 14:40:40 Flurop Dose total: 331 14:40:40 Fluoroscopy dose: 331 mGy 14:40:54 Contrast amount:Isovue 300 40ml. 14:41:01 Sharps counted by scrub and verified by R.N. 14:41:58 Insertion/operative site no bleeding no hematoma. 14:42:08 Post-op/insertion site Right Femoral artery dressed using a 4 x 4 and Tegaderm. 14:42:11 Post right femoral artery:stable 14:42:13 Post Procedure Pulses reassessed and unchanged 14:42:16 Post procedure rhythm: unchanged. 14:42:19 Estimated blood loss: 5 ml 14:42:20 Post procedure instruction explained to patient.Patient verbalizes understanding. 14:42:21 Patient needs reinforcement of post procedure teaching. 14:44:43 Procedure type changed to Cath procedure, Diagnostic procedure, LHC, LHC w/Coronaries, Miscellaneous Procedures 14:45:16 Procedure and supply charges have been captured, reviewed, submitted and are correct. 14:45:21 Procedure Complication : No complications 14:45:23 Vital chart was stopped 14:45:23 See physician's report for complete and final results. 14:45:25 Report given to [facility]. 14:45:27 Patient transfered to Med II with Stretcher. 14:45:29 Procedure ended. 14:45:29 Full Disclosure recording stopped 14:45:33 End room use (Document Last) Device Usage Item Name Manufacture Quantity Catalog Hospital Part Current Minimal Lot# / Number Charge Number Stock Stock Serial# Code Acist Syringe Acist 1 83910 370050 932310 784758 20 [employer] Inc Bag Decanter Microtek 1 2002S 929965 73504 423302 5 Medical Inc. Medline Cath Cardinal 1 [id number] 535716 63638 486279 5 Pack Health Terumo 5Fr Terumo 1 TAB425 885687 302074 443304 [address] Brian 1 646758 937476 314880 381987 30 J .035 wire Acist Hand Acist 1 64372 736734 178288 394147 5 Control Medical Systems Inc Acist Acist 1 38234 771000 044426 131746 5 Manifold Medical Systems Inc Diagnostic Cardinal 1 [id number] 009987 24416 210227 30 Infinity 5Fr Health Multipack catheter Tegaderm 4 x 3M 1 1626W 915949 177522 702934 5 4 Cook 4Fr Cook Medical 1 K57013 464827 416086 244032 5 Micropuncture Set ([id number]) Cordis 5Fr JL Cardinal 1 [id number] 5 4.0 Catheter Health (MP) Cordis 5Fr Cardinal 1 891038 5 3DRC Catheter Health (MP) Cordis 5Fr Cardinal 1 528908 5 Pigtail Health Catheter (MP) Cordis 5Fr Cardinal 1 EX500 682380 669067 017649 10 [facility] Health Signature Audit [place] Stage Time Signature Unsigned Intra-Procedure 02/28/2017 Kimmie Davis 2:48:29 PM RT(R) Signatures Monitor : Kimmie Davis RT Signature : Date : Time : [facility] [address] [place] [address]
--- NOTE | ~2017-02-27 | EC ---
PATIENT:NAMITA JARAMILLO DATE OF SERVICE: 02/27/17 SEX: M MEDICAL RECORD: [id number] DATE OF : [birth year] LOCATION:D.M2 D.212 AGE OF PATIENT: 46 ADMISSION DATE: 02/27/17 REFERRING PHYSICIAN: INTERPRETING PHYSICIAN: HUGH RAMIREZ MD ECHOCARDIOGRAM REPORT ECHO CHARGES 4 ECHO COMPLETE CLINICAL DIAGNOSIS: CP ECHOCARDIOGRAPHIC MEASUREMENTS (adult normal given) AC root (d.<3.7cm) 3.1 cm LV Septum d (<1.2 cm> 1.5 cm Valve Excursion 1.9 cm LV Septum (systole) 1.8 cm Left Atria (s.<4.0cm> 3.3 cm LVPW d(<1.2cm) 1.4 cm RV (d.<2.3cm) 2.6 cm LVPW (sytole) 1.9 cm LV diastole(<5.6CM) 4.7 cm MV E-F(>70mm/sec) cm LV systole 2.8 cm LVOT Diameter 2.0 cm MV exc.(>10mm) cm Est.ejection fraction (50-75%) % Pericardial Effusion N DOPPLER: LVIT cm/sec A 59.0 cm/sec E 68.0 cm/sec LA cm/sec RVSP 26.1 mmHg LVOT 93.0 cm/sec AOP1/2T m/s Asc. Ao 128 cm/sec RVOT 58.0 cm/sec RA cm/sec PA 95.0 cm/sec AV Gradient Peak 6.6 mmHg AV Mean 3.3 mmHg AV Area 1.9 cm MV Gradient Peak 2.9 mmHg MV Mean 1.3 mmHg MV Area cm COMMENTS: Brick Setter: Nikole BOUDREAUXOE Commercial Reporter: 4 Dr. Ramirez TAPE# PACS DATE OF SERVICE: 02/27/2017 Transthoracic Echocardiogram FINDINGS: 1. The left ventricle has qdyt-of-mrzgakah concentric left ventricular hypertrophy with preserved LV systolic function with an ejection fraction of 60%. 2. The left atrium has normal size and normal function. 3. The aortic valve has normal size and normal function. ECHOCARDIOGRAM REPORT [id number] NAMITA JARAMILLO 4. The right atrium has normal size and normal function. 5. The right ventricle has normal size and normal function. 6. The mitral valve has trace mitral regurgitation; otherwise, normal. 7. The tricuspid valve has trace tricuspid regurgitation and normal RVSP. 8. The pulmonic valve is not well visualized, but otherwise normal. 9. There is a normal pericardium. No effusion. The IVC is normal and collapses, and otherwise a normal echocardiography. TRANSINT:[id number] Voice Confirmation ID: [id number] DOCUMENT ID: [id number] HUGH RAMIREZ MD CC: [id number] DICTATION DATE: 03/01/172032 RISK ASSESSMENT ANALYST: 03/01/172330 DIS IN 02/28/17 [place] [id number] [place] [id number]
[~2017-02-27 13:21] MED LIST: BAYER CHEWABLE81 MG PO; CELEXA20 MG PO; HYDROCODONE-APA1 TAB PO; KLONOPIN1 MG PO; LAMICTAL25 MG PO; MOBIC7.5 MG PO; PLAVIX75 MG PO
[2017-02-27 14:08] LABS: BASOPHILS 1.1 % (0-2); EOSINOPHILS 4.7 % (0-7); HEMATOCRIT 42.4 % (42.0-54.0); HEMOGLOBIN 14.4 g/dL (13.5-17.5); IMMATURE GRANULOCYTES 0.2 % (0-5); LYMPHOCYTES 35.5 % (15-50); MCH 31.4 pg (26.0-34.0); MCV 92.6 fL (80.0-100.0); MEAN PLATELET VOLUME 10.7 fL (7.4-10.4); MONOCYTES 7.8 % (2-11); NEUTROPHILS 50.7 % (40-80); PLATELET COUNT 213 10x3/uL (130-400); RBC 4.58 10x6/uL (4.20-6.10); RDW 13.9 % (11.5-14.5); WBC 5.5 10x3/uL (4.8-10.8)
[2017-02-27 14:44] LABS: ALBUMIN 3.7 g/dL (3.4-5.0); ALKALINE PHOSPHATASE 113 U/L (46-116); ALT (SGPT) 86 U/L (10-68); BILIRUBIN - TOTAL 0.38 mg/dL (0.2-1.3); CALC OSMOLALITY 278 mosm/kg (275-300); CALCIUM 8.9 mg/dL (8.5-10.1); CARBON DIOXIDE 26.3 mmol/L (21.0-32.0); CHLORIDE - SERUM 105 mmol/L (98-107); CREATININE - SERUM 1.1 mg/dL (0.6-1.3); GLUCOSE 108 mg/dL (74-106); POTASSIUM - SERUM 3.9 mmol/L (3.5-5.1); PROTEIN - SERUM 7.1 g/dL (6.4-8.2); SODIUM 140 mmol/L (136-145); UREA NITROGEN 10 mg/dL (7-18); eGFR NON AFRICAN AMERICAN 77 mL/min (90-120)
[2017-02-27 14:53] LABS: CHOL - HDL RATIO 4.5 ratio (2.3-4.9); CHOLESTEROL, TOTAL 183 mg/dL (0-200); CKMB 0.4 U/L (0.0-3.6); CREATINE KINASE 324 UL (21-232); HDL CHOLESTEROL 41 mg/dL (32-96); LDL CHOLESTEROL 128 mg/dL (0-100); LDL-HDL RATIO 3.1 ratio (1.5-3.5); TRIGLYCERIDE 72 mg/dL (30-200); TROPONIN-I < 0.017 ng/mL (0.000-0.060)
[2017-02-27 19:54] VITALS: BP 157/77; Ht 177.8 cm; Wt 92.3 kg
[2017-02-27 20:00] VITALS: BP 157/77
[2017-02-27] MEDS ORDERED: MOBIC7.5 MG PO (20:43)
[2017-02-27 23:38] VITALS: BP 124/88
[2017-02-28 03:59] VITALS: BP 113/69
[2017-02-28 07:49] VITALS: BP 111/69
[2017-02-28 09:59] LABS: BASOPHILS 1.9 % (0-2); EOSINOPHILS 3.8 % (0-7); HEMATOCRIT 41.8 % (42.0-54.0); IMMATURE GRANULOCYTES 0.2 % (0-5); LYMPHOCYTES 37.1 % (15-50); MCH 31.2 pg (26.0-34.0); MCHC 33.5 g/dL (31.0-37.0); MCV 93.1 fL (80.0-100.0); MEAN PLATELET VOLUME 11.2 fL (7.4-10.4); MONOCYTES 10.3 % (2-11); NEUTROPHILS 46.7 % (40-80); PLATELET COUNT 232 10x3/uL (130-400); RBC 4.49 10x6/uL (4.20-6.10); WBC 5.9 10x3/uL (4.8-10.8)
[2017-02-28 10:00] LABS: ANION GAP 12.1 mmol/L (8-16); CALCIUM 8.8 mg/dL (8.5-10.1); CREATININE - SERUM 1.2 mg/dL (0.6-1.3); POTASSIUM - SERUM 4.1 mmol/L (3.5-5.1)
[2017-02-28 11:48] VITALS: BP 123/94
== END 2017-02-28 18:40 | disposition home or self-care (01) ==
LOC: D.ER 13:21 → OBSVTIME 16:20 → D.SDCHOLD 16:20 → D.M2 16:47
PROVIDERS: Emergency Medicine; ADMIT Internal Medicine Cardiovascular Disease
DX: R07.9 Chest pain, unspecified (principal); I25.110 Atherosclerotic heart disease of native coronary artery with unstable angina pectoris; Z95.5 Presence of coronary angioplasty implant and graft; I48.91 Unspecified atrial fibrillation; Z95.0 Presence of cardiac pacemaker; Z72.0 Tobacco use

== ENCOUNTER 2017-03-15 17:38 | Emergency (ER) | payer MEDICAID ==
[2017-02-27 19:54] VITALS: BMI 29.1
[2017-03-15 19:48] LABS: HEMATOCRIT 41.7 % (42.0-54.0); LYMPHOCYTES 38.8 % (15-50); MCHC 33.6 g/dL (31.0-37.0); MCV 92.3 fL (80.0-100.0); MEAN PLATELET VOLUME 10.5 fL (7.4-10.4); MONOCYTES 7.2 % (2-11); PLATELET COUNT 205 10x3/uL (130-400); RBC 4.52 10x6/uL (4.20-6.10); RDW 13.3 % (11.5-14.5)
[2017-03-15 20:06] LABS: ALBUMIN 3.8 g/dL (3.4-5.0); ALKALINE PHOSPHATASE 100 U/L (46-116); ALT (SGPT) 28 U/L (10-68); CALC OSMOLALITY 278 mosm/kg (275-300); CALCIUM 9.3 mg/dL (8.5-10.1); CARBON DIOXIDE 27.2 mmol/L (21.0-32.0); CHLORIDE - SERUM 107 mmol/L (98-107); CREATININE - SERUM 0.9 mg/dL (0.6-1.3); GLUCOSE 98 mg/dL (74-106); POTASSIUM - SERUM 3.8 mmol/L (3.5-5.1); PROTEIN - SERUM 7.2 g/dL (6.4-8.2); SODIUM 140 mmol/L (136-145); UREA NITROGEN 13 mg/dL (7-18); eGFR NON AFRICAN AMERICAN > 90 mL/min (90-120)
[2017-03-15 20:16] LABS: CHOL - HDL RATIO 2.8 ratio (2.3-4.9); CHOLESTEROL, TOTAL 121 mg/dL (0-200); CKMB 0.1 U/L (0.0-3.6); CREATINE KINASE 88 UL (21-232); HDL CHOLESTEROL 44 mg/dL (32-96); LDL CHOLESTEROL 60 mg/dL (0-100); LDL-HDL RATIO 1.4 ratio (1.5-3.5); TRIGLYCERIDE 85 mg/dL (30-200); TROPONIN-I < 0.017 ng/mL (0.000-0.060)
[2017-03-15 21:45] LABS: AMYLASE - SERUM 53 U/L (25-115); LIPASE 326 U/L (73-393)
== END 2017-03-16 00:19 | disposition home or self-care (01) ==
LOC: D.ER 17:38
PROVIDERS: Emergency Medicine; Nurse Practitioner Family
DX: R07.89 Other chest pain (principal); I10 Essential (primary) hypertension

== ENCOUNTER 2017-03-19 14:15 | Emergency (ER) | payer MEDICAID ==
[2017-02-27 19:54] VITALS: BMI 29.1
[2017-03-19 14:44] LABS: BASOPHILS 1.4 % (0-2); EOSINOPHILS 5.4 % (0-7); HEMATOCRIT 41.8 % (42.0-54.0); HEMOGLOBIN 14.4 g/dL (13.5-17.5); LYMPHOCYTES 45.5 % (15-50); MCH 31.1 pg (26.0-34.0); MCHC 34.4 g/dL (31.0-37.0); MCV 90.3 fL (80.0-100.0); MEAN PLATELET VOLUME 10.4 fL (7.4-10.4); MONOCYTES 7.9 % (2-11); NEUTROPHILS 39.8 % (40-80); PLATELET COUNT 192 10x3/uL (130-400); RBC 4.63 10x6/uL (4.20-6.10); RDW 13.4 % (11.5-14.5); WBC 4.3 10x3/uL (4.8-10.8)
[2017-03-19 14:58] LABS: ALBUMIN 3.6 g/dL (3.4-5.0); ALKALINE PHOSPHATASE 108 U/L (46-116); ALT (SGPT) 51 U/L (10-68); BILIRUBIN - TOTAL 0.26 mg/dL (0.2-1.3); CALC OSMOLALITY 290 mosm/kg (275-300); CALCIUM 9.1 mg/dL (8.5-10.1); CARBON DIOXIDE 24.3 mmol/L (21.0-32.0); CHLORIDE - SERUM 106 mmol/L (98-107); CREATININE - SERUM 1.4 mg/dL (0.6-1.3); POTASSIUM - SERUM 3.4 mmol/L (3.5-5.1); PROTEIN - SERUM 6.9 g/dL (6.4-8.2); SODIUM 143 mmol/L (136-145); UREA NITROGEN 21 mg/dL (7-18); eGFR NON AFRICAN AMERICAN 58 mL/min (90-120)
[2017-03-19 14:59] LABS: GLUCOSE 154 mg/dL (74-106)
[2017-03-19 15:01] LABS: CREATINE KINASE 138 UL (21-232); TROPONIN-I < 0.017 ng/mL (0.000-0.060)
== END 2017-03-19 17:05 | disposition home or self-care (01) ==
LOC: D.ER 14:15
PROVIDERS: Emergency Medicine
DX: R07.89 Other chest pain (principal); Z95.0 Presence of cardiac pacemaker; I10 Essential (primary) hypertension

== ENCOUNTER 2017-04-19 13:45 | Emergency (ER) | payer MEDICAID ==
[2017-02-27 19:54] VITALS: BMI 29.1
[2017-04-19 14:22] LABS: BASOPHILS 0.9 % (0-2); EOSINOPHILS 4.9 % (0-7); HEMATOCRIT 44.9 % (42.0-54.0); HEMOGLOBIN 15.5 g/dL (13.5-17.5); IMMATURE GRANULOCYTES 0.2 % (0-5); LYMPHOCYTES 28.5 % (15-50); MCH 31.9 pg (26.0-34.0); MCHC 34.5 g/dL (31.0-37.0); MCV 92.4 fL (80.0-100.0); MEAN PLATELET VOLUME 10.3 fL (7.4-10.4); MONOCYTES 9.8 % (2-11); NEUTROPHILS 55.7 % (40-80); PLATELET COUNT 235 10x3/uL (130-400); RBC 4.86 10x6/uL (4.20-6.10); RDW 13.3 % (11.5-14.5); WBC 8.6 10x3/uL (4.8-10.8)
[2017-04-19 14:48] LABS: ALBUMIN 3.7 g/dL (3.4-5.0); ALKALINE PHOSPHATASE 161 U/L (46-116); ALT (SGPT) 59 U/L (10-68); BILIRUBIN - TOTAL 0.25 mg/dL (0.2-1.3); CALC OSMOLALITY 285 mosm/kg (275-300); CALCIUM 8.9 mg/dL (8.5-10.1); CARBON DIOXIDE 26.3 mmol/L (21.0-32.0); CHLORIDE - SERUM 106 mmol/L (98-107); CREATININE - SERUM 0.9 mg/dL (0.6-1.3); GLUCOSE 109 mg/dL (74-106); POTASSIUM - SERUM 4.1 mmol/L (3.5-5.1); PROTEIN - SERUM 7.6 g/dL (6.4-8.2); SODIUM 143 mmol/L (136-145); UREA NITROGEN 12 mg/dL (7-18); eGFR NON AFRICAN AMERICAN > 90 mL/min (90-120)
[2017-04-19 15:00] LABS: CKMB 0.7 U/L (0.0-3.6); CREATINE KINASE 120 UL (21-232)
== END 2017-04-19 16:37 | disposition home or self-care (01) ==
LOC: D.ER 13:45
PROVIDERS: Emergency Medicine
DX: R07.9 Chest pain, unspecified (principal); I25.10 Atherosclerotic heart disease of native coronary artery without angina pectoris; I10 Essential (primary) hypertension; Z95.0 Presence of cardiac pacemaker

== ENCOUNTER 2017-05-07 11:16 | Emergency (ER) | payer MEDICAID ==
[2017-02-27 19:54] VITALS: BMI 29.1
[2017-05-07 12:00] LABS: BASOPHILS 0.6 % (0-2); EOSINOPHILS 1.6 % (0-7); HEMATOCRIT 42.7 % (42.0-54.0); HEMOGLOBIN 14.8 g/dL (13.5-17.5); IMMATURE GRANULOCYTES 0.1 % (0-5); LYMPHOCYTES 18.9 % (15-50); MCH 31.2 pg (26.0-34.0); MCHC 34.7 g/dL (31.0-37.0); MCV 89.9 fL (80.0-100.0); MONOCYTES 9.4 % (2-11); NEUTROPHILS 69.4 % (40-80); PLATELET COUNT 206 10x3/uL (130-400); RBC 4.75 10x6/uL (4.20-6.10); RDW 13.4 % (11.5-14.5); WBC 6.9 10x3/uL (4.8-10.8)
[2017-05-07 12:13] LABS: ALBUMIN 3.9 g/dL (3.4-5.0); ALKALINE PHOSPHATASE 114 U/L (46-116); ALT (SGPT) 37 U/L (10-68); BILIRUBIN - TOTAL 0.31 mg/dL (0.2-1.3); CALC OSMOLALITY 277 mosm/kg (275-300); CALCIUM 9.2 mg/dL (8.5-10.1); CARBON DIOXIDE 27.1 mmol/L (21.0-32.0); CHLORIDE - SERUM 105 mmol/L (98-107); GLUCOSE 103 mg/dL (74-106); PROTEIN - SERUM 7.4 g/dL (6.4-8.2); SODIUM 140 mmol/L (136-145); UREA NITROGEN 10 mg/dL (7-18); eGFR NON AFRICAN AMERICAN 86 mL/min (90-120)
[2017-05-07 12:28] LABS: CKMB 0.8 U/L (0.0-3.6); CREATINE KINASE 128 UL (21-232)
[2017-05-07 12:29] LABS: TROPONIN-I < 0.017 ng/mL (0.000-0.060)
== END 2017-05-07 14:26 | disposition left against medical advice (07) ==
LOC: D.ER 11:16
PROVIDERS: Family Medicine
DX: I10 Essential (primary) hypertension (principal); R07.9 Chest pain, unspecified; I25.10 Atherosclerotic heart disease of native coronary artery without angina pectoris

== ENCOUNTER 2017-05-20 14:10 | Observation (INO) | payer MEDICAID ==
[~2017-05-20] VITALS: Ht 175.3 cm; Wt 84.1 kg
[2017-05-20 15:07] LABS: EOSINOPHILS 4.7 % (0-7); HEMATOCRIT 41.9 % (42.0-54.0); HEMOGLOBIN 14.3 g/dL (13.5-17.5); IMMATURE GRANULOCYTES 0.2 % (0-5); MCH 31.1 pg (26.0-34.0); MCHC 34.1 g/dL (31.0-37.0); MCV 91.1 fL (80.0-100.0); MEAN PLATELET VOLUME 10.4 fL (7.4-10.4); MONOCYTES 9.1 % (2-11); PLATELET COUNT 205 10x3/uL (130-400); RDW 13.3 % (11.5-14.5); WBC 6.2 10x3/uL (4.8-10.8)
[2017-05-20 15:42] LABS: ALBUMIN 3.4 g/dL (3.4-5.0); ALKALINE PHOSPHATASE 88 U/L (46-116); ALT (SGPT) 25 U/L (10-68); CALC OSMOLALITY 280 mosm/kg (275-300); CALCIUM 8.7 mg/dL (8.5-10.1); CARBON DIOXIDE 29.1 mmol/L (21.0-32.0); CHLORIDE - SERUM 105 mmol/L (98-107); CKMB 0.1 U/L (0.0-3.6); CREATINE KINASE 67 UL (21-232); CREATININE - SERUM 1.1 mg/dL (0.6-1.3); GLUCOSE 90 mg/dL (74-106); POTASSIUM - SERUM 4.4 mmol/L (3.5-5.1); PROTEIN - SERUM 6.6 g/dL (6.4-8.2); SODIUM 141 mmol/L (136-145); TROPONIN-I < 0.017 ng/mL (0.000-0.060); eGFR NON AFRICAN AMERICAN 77 mL/min (90-120)
[2017-05-20 15:55] LABS: UREA NITROGEN 13 mg/dL (7-18)
[2017-05-20] MEDS ORDERED: TOPROL XL25 MG PO (17:29)
[2017-05-20] MEDS ORDERED: PROTONIX40 MG PO (17:29)
[2017-05-20] MEDS ORDERED: COZAAR25 MG PO (17:30)
[2017-05-20] MEDS ORDERED: LIPITOR10 MG PO (17:30)
[2017-05-20] MEDS ORDERED: COREG 3.1253.125 MG PO (17:30)
[2017-05-20 17:47] VITALS: BP 147/101; Ht 175.3 cm; Wt 84.1 kg
[2017-05-20 20:00] VITALS: BP 128/89
[2017-05-21] VITALS: BP 132/79
--- NOTE | 2017-05-21 01:48 | NUR ---
PT RESTING QUIETLY WITH EYES CLOSED, RESPIRATIONS EQUAL AND UNLABORED. NO DISTRESS NOTED. CALL LIGHT IN REACH, WILL CONTINUE WITH PLAN OF CARE.
[2017-05-21 04:00] VITALS: BP 109/68
[2017-05-21 05:18] LABS: EOSINOPHILS 3.3 % (0-7); HEMATOCRIT 41.7 % (42.0-54.0); IMMATURE GRANULOCYTES 0.2 % (0-5); LYMPHOCYTES 30.1 % (15-50); MCH 30.6 pg (26.0-34.0); MCHC 33.6 g/dL (31.0-37.0); MCV 91.2 fL (80.0-100.0); MEAN PLATELET VOLUME 10.3 fL (7.4-10.4); MONOCYTES 7.2 % (2-11); NEUTROPHILS 58.2 % (40-80); PLATELET COUNT 198 10x3/uL (130-400); RBC 4.57 10x6/uL (4.20-6.10); RDW 13.4 % (11.5-14.5); WBC 6.1 10x3/uL (4.8-10.8)
[2017-05-21 05:28] LABS: INR 0.96 (0.85-1.17); PROTIME 12.4 SECONDS (11.6-15.0)
[2017-05-21 05:47] LABS: ALBUMIN 3.2 g/dL (3.4-5.0); ALKALINE PHOSPHATASE 87 U/L (46-116); CALCIUM 8.5 mg/dL (8.5-10.1); CHLORIDE - SERUM 106 mmol/L (98-107); CHOL - HDL RATIO 3.7 ratio (2.3-4.9); CHOLESTEROL, TOTAL 139 mg/dL (0-200); CREATININE - SERUM 1.2 mg/dL (0.6-1.3); GLUCOSE 102 mg/dL (74-106); HDL CHOLESTEROL 38 mg/dL (32-96); LDL CHOLESTEROL 84 mg/dL (0-100); LDL-HDL RATIO 2.2 ratio (1.5-3.5); MAGNESIUM - SERUM 2.2 mg/dL (1.8-2.4); PHOSPHOROUS 4.1 mg/dL (2.5-4.9); POTASSIUM - SERUM 3.9 mmol/L (3.5-5.1); PRO BNP 101 pg/mL (0-125); PROTEIN - SERUM 6.3 g/dL (6.4-8.2); SODIUM 142 mmol/L (136-145); TRIGLYCERIDE 89 mg/dL (30-200); eGFR NON AFRICAN AMERICAN 69 mL/min (90-120)
[2017-05-21 05:48] LABS: ALT (SGPT) 43 U/L (10-68); CALC OSMOLALITY 284 mosm/kg (275-300); UREA NITROGEN 17 mg/dL (7-18)
[2017-05-21 05:55] LABS: C-REACTIVE PROTEIN < 0.2 mg/dL (0.0-0.9)
--- NOTE | 2017-05-21 07:00 | NUR ---
REPORT RECEIVED, ASSUMED CARE OF PT. RESTING WITH EYES SHUT, EASILY AROUSED. NO NEEDS VOICED AT THIS TIME.
[2017-05-21 08:16] VITALS: BP 106/75
[2017-05-21 12:14] VITALS: BP 99/74
[2017-05-21 15:38] VITALS: BP 98/69
[2017-05-21 20:00] VITALS: BP 121/83
[2017-05-22] VITALS: BP 110/69
[2017-05-22 04:00] VITALS: BP 110/79
[2017-05-22 05:34] LABS: HEMATOCRIT 39.8 % (42.0-54.0); HEMOGLOBIN 13.6 g/dL (13.5-17.5); LYMPHOCYTES 41.8 % (15-50); MCH 30.5 pg (26.0-34.0); MCHC 34.2 g/dL (31.0-37.0); NEUTROPHILS 48.1 % (40-80); PLATELET COUNT 205 10x3/uL (130-400); RBC 4.46 10x6/uL (4.20-6.10); RDW 13.3 % (11.5-14.5); WBC 5.3 10x3/uL (4.8-10.8)
[2017-05-22 05:35] LABS: MCV 89.2 fL (80.0-100.0)
[2017-05-22 05:46] LABS: ALBUMIN 3.3 g/dL (3.4-5.0); BILIRUBIN - TOTAL 0.1 mg/dL (0.2-1.3); CALCIUM 8.7 mg/dL (8.5-10.1); CARBON DIOXIDE 31.1 mmol/L (21.0-32.0); CREATININE - SERUM 1.3 mg/dL (0.6-1.3); POTASSIUM - SERUM 4.1 mmol/L (3.5-5.1); PROTEIN - SERUM 6.4 g/dL (6.4-8.2)
--- NOTE | 2017-05-22 07:14 | NUR ---
REPORT RECEIVED FROM SALESPERSON FLYING SQUAD NURSE. CALL LIGHT IN REACH.
[2017-05-22 08:55] VITALS: BP 123/74
--- NOTE | 2017-05-22 09:24 | NUR ---
ASSESSMENT COMPLETED. AM MEDS ADMINISTERED. MORPHINE 2 MG SIVP PER C/O PAIN OF 9 TO LEFT HAND. CALL LIGHT IN REACH. WILL CONTINUE WITH PLAN OF CARE.
--- NOTE | 2017-05-22 11:08 | NUR ---
SCDs APPLIED TO BLE. STATES PAIN IS UP TO A 9. CALL LIGHT IN REACH.
--- NOTE | 2017-05-22 11:36 | NUR ---
PASSWORD OBTAINED AND PLACED IN COMPUTER.
--- NOTE | 2017-05-22 12:54 | NUR ---
CM was asked by Dr Lopes to get in touch with patients neurologist Dr Villela in [place]. Office called ([phone]) and it was closed. CM then called [facility] bed board to try to get transferred to [place] due to the fact we do not have Neurology on staff any longer. per Shannon Verduzco APN. Med exchange called ([phone]) a Dr Rodriguez will be calling to speak with Dr Lopes. CM will continue to follow and assist with discharge planning needs.
[2017-05-22 13:25] VITALS: BP 93/64
--- NOTE | 2017-05-22 13:56 | NUR ---
KLONOPIN PO AND MORPHINE 2 MG SIVP FOR ANXIETY AND PAIN. CALL LIGHT IN REACH.
--- NOTE | 2017-05-22 14:24 | NUR ---
AWAKE AND ALERT. ORIENTED X3. NO C/O AT THIS TIME. CAST TO RIGHT ARM PATNET AND DRY. DENIES NEEDS.
--- NOTE | 2017-05-22 16:11 | NUR ---
MORPHINE 2 MG SIVP PER C/O PAIN OF 8 TO RIGHT HAND. COREG HELD D/T BP OF 102/52.
[2017-05-22 16:46] VITALS: BP 102/52
--- NOTE | 2017-05-22 18:38 | NUR ---
REQUESTING MORE PAIN MEDS. MORPHINE 2 MG SIVP. SCDs TO BLE. NO OTHER CHANGES IN INITIAL ASSESSMENT. ORDER FOR MORPHINE PRACTICING MD ANESTHESIOLOGIST. CALL LIGHT IN REACH. WILL CONTINUE WITH PLAN OF CARE.
[2017-05-22 20:00] VITALS: BP 140/90
--- NOTE | 2017-05-22 23:38 | NUR ---
PATIENT IS AWAKE, ALERT AND ORIENTED X'S 4. RESPIRATIONS ARE EVEN AND UNLABORED ON ROOM AIR. PATIENT DENIES NEEDS AT THIS TIME. HOB 30 DEGREES.
[2017-05-23] VITALS: BP 105/52
[2017-05-23 04:00] VITALS: BP 142/96
--- NOTE | 2017-05-23 04:35 | NUR ---
IV IN LEFT UPPER FA RED AND SWOLLEN. DC'D WITH TIP INTACT. RESITED TO LEFT FA 22 GAUGE X6 STICKS. GOOD BLOOD RETURN NOTED.
[2017-05-23 04:52] LABS: BASOPHILS 1.2 % (0-2); EOSINOPHILS 5.1 % (0-7); HEMATOCRIT 38.7 % (42.0-54.0); HEMOGLOBIN 13.1 g/dL (13.5-17.5); IMMATURE GRANULOCYTES 0.2 % (0-5); LYMPHOCYTES 38.5 % (15-50); MCHC 33.9 g/dL (31.0-37.0); MEAN PLATELET VOLUME 10.4 fL (7.4-10.4); MONOCYTES 6.6 % (2-11); NEUTROPHILS 48.4 % (40-80); PLATELET COUNT 190 10x3/uL (130-400); RBC 4.22 10x6/uL (4.20-6.10); RDW 13.2 % (11.5-14.5); WBC 5.7 10x3/uL (4.8-10.8)
[2017-05-23 04:53] LABS: MCV 91.7 fL (80.0-100.0)
[2017-05-23 05:13] LABS: ALBUMIN 3.1 g/dL (3.4-5.0); BILIRUBIN - TOTAL 0.12 mg/dL (0.2-1.3); CALCIUM 8.5 mg/dL (8.5-10.1); CARBON DIOXIDE 31.1 mmol/L (21.0-32.0); CREATININE - SERUM 1.2 mg/dL (0.6-1.3); POTASSIUM - SERUM 4.1 mmol/L (3.5-5.1); PROTEIN - SERUM 6.2 g/dL (6.4-8.2)
--- NOTE | 2017-05-23 07:15 | NUR ---
REPORT RECEIVED FROM GLOBAL MOBILITY SPECIALIST NURSE. CALL LIGHT IN REACH.
--- NOTE | 2017-05-23 09:00 | NUR ---
ASSESSMENT COMPLETED. SCDs TO BLE. CALL LIGHT IN REACH. WILL CONTINUE WITH PLAN OF CARE.
[2017-05-23 09:13] VITALS: BP 129/85
[2017-05-23 10:33] LABS: CKMB 0.3 U/L (0.0-3.6); CREATINE KINASE 62 UL (21-232); TROPONIN-I < 0.017 ng/mL (0.000-0.060)
--- NOTE | 2017-05-23 11:06 | NUR ---
AM MEDS ADMINISTERED. ZOFRAN 4 MG SIVP. CALL LIGHT IN REACH.
--- NOTE | 2017-05-23 11:08 | NUR ---
SITTING UP IN BED GETTING DRESSED. DENIES NEEDS. CAST TO RIGHT ARM PATENT.
[2017-05-23 13:16] VITALS: BP 117/82
--- NOTE | 2017-05-23 13:47 | NUR ---
SITTING ON SIDE OF BED WATCHING TV. STATES PAIN OF 7. STILL USING CUSTODIAL SERVICES MANAGER AT THIS TIME.
--- NOTE | 2017-05-23 14:50 | NUR ---
AMBULATED IN HALLWAY ADLIB WITH NO DISTRESS NOTED. TOLERATED VERY WELL.
[2017-05-23 15:53] VITALS: BP 102/62
--- NOTE | 2017-05-23 16:27 | NUR ---
AFTERNOON MEDS ADMINISTERED. CALL LIGHT IN REACH.
[2017-05-23 17:18] LABS: CKMB 0.4 U/L (0.0-3.6); CREATINE KINASE 64 UL (21-232); TROPONIN-I < 0.017 ng/mL (0.000-0.060)
--- NOTE | 2017-05-23 18:00 | NUR ---
NO CHANGES IN INITIAL ASSESSMENT. CALL LIGHT IN REACH. SCDs TO BLE. WILL CONTINUE WITH PLAN OF CARE.
[2017-05-23 20:56] VITALS: BP 114/68
[2017-05-23 22:19] LABS: CKMB 0.4 U/L (0.0-3.6); CREATINE KINASE 88 UL (21-232)
[2017-05-23 22:20] LABS: TROPONIN-I < 0.017 ng/mL (0.000-0.060)
[2017-05-24 01:42] VITALS: BP 121/67
[2017-05-24 04:47] LABS: BASOPHILS 1.4 % (0-2); EOSINOPHILS 4.3 % (0-7); HEMATOCRIT 38.6 % (42.0-54.0); HEMOGLOBIN 12.7 g/dL (13.5-17.5); LYMPHOCYTES 35.9 % (15-50); MCH 30.5 pg (26.0-34.0); MCHC 32.9 g/dL (31.0-37.0); MCV 92.6 fL (80.0-100.0); MEAN PLATELET VOLUME 10.5 fL (7.4-10.4); MONOCYTES 9.7 % (2-11); NEUTROPHILS 48.7 % (40-80); PLATELET COUNT 194 10x3/uL (130-400); RBC 4.17 10x6/uL (4.20-6.10); RDW 13.5 % (11.5-14.5); WBC 5.8 10x3/uL (4.8-10.8)
--- NOTE | 2017-05-24 04:50 | NUR ---
ASSESSED, PT IS ASLEEP AND RESPIRATIONS ARE EASY. CAST TO THE RIGHT ARM. THE BED IS LOW, RAILS UP X'S 2 WITH THE CALL LIGHT AT HAND.
[2017-05-24 05:14] LABS: ANION GAP 8.2 mmol/L (8-16); BILIRUBIN - TOTAL 0.2 mg/dL (0.2-1.3); CALCIUM 8.1 mg/dL (8.5-10.1); CARBON DIOXIDE 32.9 mmol/L (21.0-32.0); CREATININE - SERUM 1.3 mg/dL (0.6-1.3); POTASSIUM - SERUM 4.1 mmol/L (3.5-5.1); PROTEIN - SERUM 5.9 g/dL (6.4-8.2)
[2017-05-24 05:22] VITALS: BP 98/68
--- NOTE | 2017-05-24 07:26 | NUR ---
REPORT RECEIVED FROM CLIENT SERVICE EXECUTIVE NURSE. CALL LIGHT IN REACH.
--- NOTE | 2017-05-24 08:29 | NUR ---
ASSESSMENT COMPLETED. AM MEDS ADMINISTERED. SCDs ON AT THIS TIME. CALL LIGHT IN REACH. WILL CONTINUE WITH PLAN OF CARE.
--- NOTE | 2017-05-24 10:55 | NUR ---
SWELLING AND REDNESS TO IV SITE. DC'D WITH TIP INTACT. IN SHOWER AT THIS TIME.
--- NOTE | 2017-05-24 11:22 | NUR ---
IV SITED TO FA WITH 22 GUAGE X 1 ATTEMPT.
[2017-05-24 12:05] VITALS: BP 121/87
[2017-05-24] MEDS ORDERED: HYDROCODONE-APA1 TAB PO (13:10)
--- NOTE | 2017-05-24 13:40 | NUR ---
AMBULATING IN HALLWAY ADLIB. TOLERATING WELL. ICE CREAM HANDED TO PATIENT.
--- NOTE | 2017-05-24 14:37 | NUR ---
NORCO AND CLONAZEPAM PO. CALL LIGHT IN REACH.
--- NOTE | 2017-05-24 15:40 | NUR ---
DC INSTRUCTIONS EXPLAINED TO PATIENT. VERBALIZED UNDERSTANDING. RX FOR NORCO HANDED TO PATIENT. AMBULATED PATIENT OUTSIDE FOR CAB.
--- NOTE | 2017-05-24 16:00 | NUR ---
AFTER RETURNING TO ROOM TO DC IV FLUIDS, TUBING, AND CONTRACTS PARALEGAL, NOTICED THAT CONTRACTS PARALEGAL TUBING WAS TORN AND CONTRACTS PARALEGAL WAS EMPTY. NOTIFIED NURSE AND PROJECT SCHEDULER AND MD ROUGH ROUNDER MACHINE.
--- NOTE | 2017-06-02 08:55 | EC ---
PATIENT:NAMITA JARAMILLO DATE OF SERVICE: 05/20/17 SEX: M MEDICAL RECORD: [id number] DATE OF : 72 LOCATION:D.MS [facility] AGE OF PATIENT: 46 ADMISSION DATE: 05/20/17 REFERRING PHYSICIAN: INTERPRETING PHYSICIAN: HUGH RAMIREZ MD ECHOCARDIOGRAM REPORT ECHO CHARGES 4 ECHO COMPLETE CLINICAL DIAGNOSIS: SYNCOPE / CHEST PAIN/ HX OF CAD ECHOCARDIOGRAPHIC MEASUREMENTS (adult normal given) AC root (d.<3.7cm) 3.2 cm LV Septum d (<1.2 cm> 1.1 cm Valve Excursion 2.1 cm LV Septum (systole) 1.3 cm Left Atria (s.<4.0cm> 3.3 cm LVPW d(<1.2cm) 1.4 cm RV (d.<2.3cm) 3.1 cm LVPW (sytole) 1.7 cm LV diastole(<5.6CM) 4.5 cm MV E-F(>70mm/sec) cm LV systole 3.5 cm LVOT Diameter 1.8 cm MV exc.(>10mm) 1.5 cm Est.ejection fraction (50-75%) % Pericardial Effusion N DOPPLER: LVIT cm/sec A 81.0 cm/sec E 36.0 cm/sec LA cm/sec RVSP 23 mmHg LVOT 79 cm/sec AOP1/2T m/s Asc. Ao 115 cm/sec RVOT 62 cm/sec RA cm/sec PA 86 cm/sec AV Gradient Peak 5.25 mmHg AV Mean 2.70 mmHg AV Area 1.9 cm MV Gradient Peak 3.36 mmHg MV Mean 1.46 mmHg MV Area cm COMMENTS: Proposal Engineer: Colleen PRUITT Drilling Engineering Manager: 4 Dr. Ramirez TAPE# PACS DATE OF SERVICE: 05/21/2017 PROCEDURE: Transthoracic echocardiogram. FINDINGS: 1. Echo quality is of good to excellent quality with good visualization of endocardial structures. 2. The left ventricle demonstrates mild concentric left ventricular hypertrophy with inflow characteristics consistent with diastolic dysfunction. The overall ejection fraction is 55% with no obvious regional wall motion abnormalities. ECHOCARDIOGRAM REPORT [id number] NAMITA JARAMILLO 3. The aortic valve appears to be structurally normal with no evidence of aortic stenosis or aortic regurgitation. 4. The mitral valve is well visualized and normal. 5. The tricuspid valve is well visualized and normal. 6. The pericardium was normal. 7. Pulmonic valve is normal. 8. On the right side of the heart, the right atrium appears to have mild dilatation as well as the right ventricle, mild dilatation, both appear to be structurally normal. There is a pacer wire noted in the right-sided chambers. CONCLUSIONS: The patient has mild hypertensive heart disease, evidence of diastolic dysfunction with preserved left ventricular systolic function. TRANSINT:[id number] Voice Confirmation ID: [id number] DOCUMENT ID: [id number] 06/01/2017 Edited to correct date of service, dm. HUGH RAMIRZE MD at 0855 CC: [id number] DICTATION DATE: 05/22/17 0721 CONTRACT OFFICER: 05/22/17 1143 DIS IN 05/24/17 [facility] [address] [place] [address]
== END 2017-05-24 15:40 | disposition home or self-care (01) ==
LOC: D.ER 14:10 → D.MS 16:37 → OBSVTIME 16:37 → D.MS 16:37
PROVIDERS: Emergency Medicine; ADMIT Family Medicine
DX: R55 Syncope and collapse (principal); G40.909 Epilepsy, unspecified, not intractable, without status epilepticus; R07.9 Chest pain, unspecified; S62.306A Unspecified fracture of fifth metacarpal bone, right hand, initial encounter for closed fracture; W19.XXXA Unspecified fall, initial encounter; Z95.0 Presence of cardiac pacemaker; I25.10 Atherosclerotic heart disease of native coronary artery without angina pectoris; I10 Essential (primary) hypertension; K21.9 Gastro-esophageal reflux disease without esophagitis; I24.9 Acute ischemic heart disease, unspecified